=== PATIENT | female | born 1980 | race Hispanic/Latino ===

== ENCOUNTER 2018-12-30 15:35 | Inpatient (IN) | payer MEDICARE ==
[~2018-12-30] VITALS: Ht 162.6 cm; Wt 114.8 kg
[2018-12-30 16:09] LABS: BASOPHILS % (AUTO) 0.6 % (0.0-5.0); EOSINOPHILS % (AUTO) 4.7 % (0.0-8.0); HEMATOCRIT 41.4 % (36-48); LYMPHOCYTES % (AUTO) 16.7 % (21.0-51.0); MEAN CORPUSCULAR HEMOGLOBIN 30.6 pg (27.0-33.0); MEAN CORPUSCULAR HGB CONC 33.4 g/dL (32.0-36.0); MEAN CORPUSCULAR VOLUME 91.4 fL (79-99); MONOCYTES % (AUTO) 5.2 % (3.0-13.0); NEUTROPHILS % (AUTO) 72.8 % (40.0-77.0); PLATELET COUNT (AUTO) 269 K/uL (130-400); RED BLOOD CELL COUNT(AUTO) 4.53 MIL/uL (4.00-5.50); RED CELL DISTRIBUTION WIDTH 13.7 % (11.0-15.5)
[2018-12-30] MEDS ORDERED: FAMOTIDINE/PF 20 MG/2 ML VIAL IV ONE (16:12)
[2018-12-30] MEDS ORDERED: ONDANSETRON HCL 4 MG/2 ML VIAL ONE (16:12)
[2018-12-30] MEDS ORDERED: SODIUM CHLORIDE 0.9% 1000ML 1,000 ML IV ONE ×2 (16:12→19:02)
[2018-12-30 16:18] LABS: CREATININE 0.6 mg/dL (0.5-1.5); POTASSIUM 3.4 mmol/L (3.5-5.1)
[2018-12-30 16:22] LABS: BILIRUBIN,TOTAL 5.7 mg/dL (0.2-1.0); TOTAL PROTEIN, SERUM 7.4 g/dL (6.0-8.3)
[2018-12-30] MEDS ORDERED: DICYCLOMINE HCL 10 MG/ML 2ML AMP IM ONE (17:26)
[2018-12-30] MEDS: SODIUM CHLORIDE 0.9% 1000ML 1,000 ML IV SCH (17:27)
[2018-12-30] MEDS ORDERED: ACETAMINOPHEN 325 MG TAB PO PRN ×2 (17:30)
[2018-12-30] MEDS ORDERED: LACTULOSE 20 GM/30 ML UDCUP PO PRN (17:30)
[2018-12-30] MEDS ORDERED: HYDRALAZINE HCL 20 MG/ML VIAL IV PRN (17:30)
[2018-12-30 17:41] LABS: APPEARANCE,URINE CLOUDY (CLEAR); BILIRUBIN,URINE LARGE (NEGATIVE); COLOR,URINE ORANGE (YELLOW); GLUCOSE, URINE (UA) NEGATIVE (NEGATIVE); KETONES,URINE >=80 mg/dL (NEGATIVE); LEUKOCYTE ESTERASE ,URINE NEGATIVE (NEGATIVE); NITRATE,URINE POSITIVE (NEGATIVE); OCCULT BLOOD,URINE NEGATIVE (NEGATIVE); PROTEIN,URINE 100 mg/dL (NEGATIVE)
[2018-12-30 17:51] LABS: HCG,QUAL RESULT NEGATIVE (NEGATIVE)
[2018-12-30 18:02] LABS: RBC,URINE 0-1 /HPF (0-1)
[2018-12-30 18:03] LABS: BACTERIA,URINE Few /HPF (None Seen); MUCUS,URINE Few LPF (None Seen); SQUAMOUS EPITHELIAL CELL,UR Few /HPF (0-2)
[2018-12-30] MEDS ORDERED: ZOSYN 3.375GM+NS 50ML 50 ML IV ONE (19:01)
[2018-12-30] MEDS ORDERED: POTASSIUM CHLORIDE 10MEQ/100ML 100 ML IV PRN (20:15)
[2018-12-30] MEDS ORDERED: LIDOCAINE HCL-MPF 1% 2ML VIAL IVP PRN (20:15)
[2018-12-30] MEDS ORDERED: POTASSIUM CHLORIDE 20 MEQ ERTAB PO PRN (20:15)
[2018-12-30 20:28] VITALS: BP 145/93
[2018-12-30] MEDS: ZOSYN 3.375GM+NS 50ML 50 ML IV SCH (21:00)
[2018-12-30] MEDS: FAMOTIDINE/PF 20 MG/2 ML VIAL IV SCH (21:00)
[2018-12-30] MEDS ORDERED: ALBU8.5H8 IH (23:12)
[2018-12-30 23:52] VITALS: BP 160/94
[2018-12-31] MEDS: MEPERIDINE-PF 25 MG/ML SYG IV PRN ×2 (01:00→16:57)
[2018-12-31] MEDS: SODIUM CHLORIDE 0.9% 1000ML 1,000 ML IV SCH ×3 (03:27→22:14)
[2018-12-31 04:00] VITALS: BP 135/65
[2018-12-31] MEDS: ZOSYN 3.375GM+NS 50ML 50 ML IV SCH ×3 (06:18→22:14)
[2018-12-31 08:00] VITALS: BP 142/76
[2018-12-31 08:42] LABS: BASOPHILS % (AUTO) 0.5 % (0.0-5.0); HEMATOCRIT 35.7 % (36-48); LYMPHOCYTES % (AUTO) 20.6 % (21.0-51.0); MEAN CORPUSCULAR HEMOGLOBIN 31.1 pg (27.0-33.0); MEAN CORPUSCULAR HGB CONC 33.5 g/dL (32.0-36.0); MEAN CORPUSCULAR VOLUME 92.9 fL (79-99); MONOCYTES % (AUTO) 6.3 % (3.0-13.0); NEUTROPHILS % (AUTO) 68.6 % (40.0-77.0); PLATELET COUNT (AUTO) 214 K/uL (130-400); RED BLOOD CELL COUNT(AUTO) 3.85 MIL/uL (4.00-5.50); RED CELL DISTRIBUTION WIDTH 13.7 % (11.0-15.5); WHITE BLOOD COUNT (AUTO) 5.4 K/uL (4.8-10.8)
[2018-12-31 09:05] LABS: BILIRUBIN,TOTAL 4.3 mg/dL (0.2-1.0); CREATININE 0.5 mg/dL (0.5-1.5); POTASSIUM 3.6 mmol/L (3.5-5.1)
[2018-12-31 11:46] VITALS: BP 123/71
[2018-12-31] MEDS: FAMOTIDINE/PF 20 MG/2 ML VIAL IV SCH ×2 (15:48→22:14)
--- NOTE | 2018-12-31 16:37 | NUR ---
DCP CM met with pt discussed dc plans. Pt is independent prior to surgery, lives at home with mother. Denies any equipments/services. Pt feels safe to go back home, still drives, mother able to assist with transportation as necessary, arranges own meds. DC plan to home once stable. CM to cont to follow up. Addendum: 12/31/18 at 1639 by KRISTOPHER PARK LVN CM Amended: Links added.
[2018-12-31 16:56] VITALS: BP 123/68
[2018-12-31] MEDS: ONDANSETRON HCL 4 MG/2 ML VIAL IV PRN (16:57)
--- NOTE | 2018-12-31 18:00 | NUR ---
CALLED. AWARE OF MRCP RESULTS. PATIENT AND FAMILY AWARE. Addendum: 12/31/18 at 1825 by RIGO FLORES RN RN Amended: Links added.
[2018-12-31 20:00] VITALS: BP 116/66
[2019-01-01] VITALS (7 sets, daily range): BP systolic 114–128; BP diastolic 59–74
[2019-01-01 04:56] LABS: BASOPHILS % (AUTO) 0.5 % (0.0-5.0); HEMATOCRIT 39.3 % (36-48); LYMPHOCYTES % (AUTO) 16.4 % (21.0-51.0); MEAN CORPUSCULAR HEMOGLOBIN 31.8 pg (27.0-33.0); MEAN CORPUSCULAR HGB CONC 33.8 g/dL (32.0-36.0); MEAN CORPUSCULAR VOLUME 94.1 fL (79-99); MONOCYTES % (AUTO) 3.6 % (3.0-13.0); NEUTROPHILS % (AUTO) 77.5 % (40.0-77.0); PLATELET COUNT (AUTO) 239 K/uL (130-400); RED BLOOD CELL COUNT(AUTO) 4.18 MIL/uL (4.00-5.50); RED CELL DISTRIBUTION WIDTH 13.9 % (11.0-15.5); WHITE BLOOD COUNT (AUTO) 7.4 K/uL (4.8-10.8)
[2019-01-01 05:07] LABS: ALBUMIN 3.3 g/dL (3.5-5.0); BILIRUBIN,TOTAL 4.4 mg/dL (0.2-1.0); CREATININE 0.6 mg/dL (0.5-1.5); POTASSIUM 3.9 mmol/L (3.5-5.1); TOTAL PROTEIN, SERUM 6.9 g/dL (6.0-8.3)
[2019-01-01] MEDS: ZOSYN 3.375GM+NS 50ML 50 ML IV SCH ×3 (05:28→21:51)
[2019-01-01] MEDS: FAMOTIDINE/PF 20 MG/2 ML VIAL IV SCH ×2 (09:59→21:51)
[2019-01-01] MEDS: SODIUM CHLORIDE 0.9% 1000ML 1,000 ML IV SCH (10:51)
[2019-01-01] MEDS: ONDANSETRON HCL 4 MG/2 ML VIAL IV PRN ×3 (10:51→22:56)
[2019-01-01] MEDS: MEPERIDINE-PF 25 MG/ML SYG IV PRN ×3 (10:56→22:57)
--- NOTE | 2019-01-01 12:34 | NUR ---
Dr. Brewster in to see pt., states will wait & see how the live enzymes do after ERCP, may do lap jerry as an out patient.
--- NOTE | 2019-01-01 13:55 | NUR ---
Dr. Man called stated unable to do ERCP due to pt's history of gastric bypass surgery. Notified Dr. Brewster. stated to give pt. clear liquids, and he will see her tomorrow.
[2019-01-02 04:14] VITALS: BP 139/78
[2019-01-02 05:10] LABS: BASOPHILS % (AUTO) 0.7 % (0.0-5.0); HEMATOCRIT 37.8 % (36-48); LYMPHOCYTES % (AUTO) 18.3 % (21.0-51.0); MEAN CORPUSCULAR HEMOGLOBIN 31.4 pg (27.0-33.0); MEAN CORPUSCULAR HGB CONC 33.9 g/dL (32.0-36.0); MEAN CORPUSCULAR VOLUME 92.7 fL (79-99); MONOCYTES % (AUTO) 6.5 % (3.0-13.0); NEUTROPHILS % (AUTO) 70.5 % (40.0-77.0); PLATELET COUNT (AUTO) 227 K/uL (130-400); RED BLOOD CELL COUNT(AUTO) 4.07 MIL/uL (4.00-5.50); RED CELL DISTRIBUTION WIDTH 13.8 % (11.0-15.5); WHITE BLOOD COUNT (AUTO) 6.5 K/uL (4.8-10.8)
[2019-01-02] MEDS: ZOSYN 3.375GM+NS 50ML 50 ML IV SCH ×3 (05:13→21:06)
[2019-01-02] MEDS: SODIUM CHLORIDE 0.9% 1000ML 1,000 ML IV SCH ×5 (05:27→21:07)
[2019-01-02 05:44] LABS: ALBUMIN 2.8 g/dL (3.5-5.0); BILIRUBIN,TOTAL 3.5 mg/dL (0.2-1.0); CREATININE 0.6 mg/dL (0.5-1.5); POTASSIUM 3.7 mmol/L (3.5-5.1); TOTAL PROTEIN, SERUM 6.2 g/dL (6.0-8.3)
[2019-01-02 08:00] VITALS: BP 151/75
[2019-01-02] MEDS: FAMOTIDINE/PF 20 MG/2 ML VIAL IV SCH ×2 (09:51→21:06)
[2019-01-02 12:00] VITALS: BP 136/71
[2019-01-02] MEDS: ONDANSETRON HCL 4 MG/2 ML VIAL IV PRN ×2 (12:56→21:06)
[2019-01-02] MEDS: MEPERIDINE-PF 25 MG/ML SYG IV PRN ×2 (12:59→21:08)
[2019-01-02 16:00] VITALS: BP 128/80
[2019-01-02 20:27] VITALS: BP 113/69
[2019-01-03 00:18] VITALS: BP 107/52
[2019-01-03 04:42] VITALS: BP 122/68
[2019-01-03 05:16] LABS: BASOPHILS % (AUTO) 0.5 % (0.0-5.0); EOSINOPHILS % (AUTO) 4.3 % (0.0-8.0); HEMATOCRIT 35.2 % (36-48); LYMPHOCYTES % (AUTO) 25.2 % (21.0-51.0); MEAN CORPUSCULAR HEMOGLOBIN 31.3 pg (27.0-33.0); MEAN CORPUSCULAR HGB CONC 34.1 g/dL (32.0-36.0); MEAN CORPUSCULAR VOLUME 91.8 fL (79-99); MONOCYTES % (AUTO) 7.6 % (3.0-13.0); NEUTROPHILS % (AUTO) 62.4 % (40.0-77.0); PLATELET COUNT (AUTO) 234 K/uL (130-400); RED BLOOD CELL COUNT(AUTO) 3.83 MIL/uL (4.00-5.50); RED CELL DISTRIBUTION WIDTH 13.8 % (11.0-15.5); WHITE BLOOD COUNT (AUTO) 5.8 K/uL (4.8-10.8)
[2019-01-03] MEDS: ZOSYN 3.375GM+NS 50ML 50 ML IV SCH ×3 (05:25→22:05)
[2019-01-03 05:27] LABS: ALBUMIN 2.8 g/dL (3.5-5.0); BILIRUBIN,TOTAL 1.9 mg/dL (0.2-1.0); CREATININE 0.5 mg/dL (0.5-1.5); POTASSIUM 3.3 mmol/L (3.5-5.1); TOTAL PROTEIN, SERUM 5.8 g/dL (6.0-8.3)
[2019-01-03 08:00] VITALS: BP 126/72
[2019-01-03] MEDS: FAMOTIDINE/PF 20 MG/2 ML VIAL IV SCH ×2 (10:00→22:05)
[2019-01-03] MEDS: ONDANSETRON HCL 4 MG/2 ML VIAL IV PRN ×2 (10:00→17:53)
[2019-01-03] MEDS: POTASSIUM CHLORIDE 10% ELIXIR 20 MEQ/15 ML UDCUP PO PRN ×3 (10:01→15:23)
[2019-01-03] MEDS: MEPERIDINE-PF 25 MG/ML SYG IV PRN ×2 (10:02→17:54)
[2019-01-03 12:06] VITALS: BP 106/61
[2019-01-03] MEDS: SODIUM CHLORIDE 0.9% 1000ML 1,000 ML IV SCH (15:28)
[2019-01-03 16:00] VITALS: BP 125/62
[2019-01-03 20:00] VITALS: BP 119/71
[2019-01-04] VITALS: BP 118/79
[2019-01-04] MEDS: ONDANSETRON HCL 4 MG/2 ML VIAL IV PRN (01:04)
[2019-01-04] MEDS: MEPERIDINE-PF 25 MG/ML SYG IV PRN (01:05)
[2019-01-04 04:00] VITALS: BP 120/73
[2019-01-04 04:50] LABS: BASOPHILS % (AUTO) 0.6 % (0.0-5.0); HEMATOCRIT 35.1 % (36-48); LYMPHOCYTES % (AUTO) 28.5 % (21.0-51.0); MEAN CORPUSCULAR HEMOGLOBIN 31.8 pg (27.0-33.0); MEAN CORPUSCULAR HGB CONC 34.5 g/dL (32.0-36.0); MEAN CORPUSCULAR VOLUME 92.2 fL (79-99); MONOCYTES % (AUTO) 8.7 % (3.0-13.0); NEUTROPHILS % (AUTO) 57.2 % (40.0-77.0); PLATELET COUNT (AUTO) 227 K/uL (130-400); RED BLOOD CELL COUNT(AUTO) 3.81 MIL/uL (4.00-5.50); RED CELL DISTRIBUTION WIDTH 13.8 % (11.0-15.5); WHITE BLOOD COUNT (AUTO) 5.4 K/uL (4.8-10.8)
[2019-01-04 05:05] LABS: ALBUMIN 2.7 g/dL (3.5-5.0); BILIRUBIN,TOTAL 2.2 mg/dL (0.2-1.0); CREATININE 0.5 mg/dL (0.5-1.5); TOTAL PROTEIN, SERUM 5.6 g/dL (6.0-8.3)
[2019-01-04 05:08] LABS: POTASSIUM 2.9 mmol/L (3.5-5.1)
[2019-01-04] MEDS: ZOSYN 3.375GM+NS 50ML 50 ML IV SCH ×2 (05:28→12:35)
[2019-01-04] MEDS: POTASSIUM CHLORIDE 10% ELIXIR 20 MEQ/15 ML UDCUP PO PRN (05:30)
[2019-01-04 07:45] VITALS: BP 118/74
[2019-01-04] MEDS: FAMOTIDINE/PF 20 MG/2 ML VIAL IV SCH (08:30)
[2019-01-04] MEDS: SODIUM CHLORIDE 0.9% 1000ML 1,000 ML IV SCH (08:31)
[2019-01-04 11:04] VITALS: BP 125/76
[2019-01-04] MEDS ORDERED: MORPHINE SULFATE 2 MG/ML 1ML SYG IVP PRN (11:15)
[2019-01-04 16:36] VITALS: BP 119/76
--- NOTE | 2019-01-04 18:12 | NUR ---
1426 Transfer request to [facility] under the service of Dr Barajas. 1545 chart review and transfer center contacted spoke with [facility] transfer worker information fax and now pending call back . [phone] follow on bed assignment as per [facility] awaiting for a bed to become available pending call back. primary nurse made aware of above. Octavio rea
--- NOTE | 2019-01-04 19:17 | NUR ---
1832 [facility] call back with assignment room 1521 and primary nurse to call report to [phone] under the service of Jewel Barajas and consents sign and EMS set up and now awaiting for EMS. Octavio rea
== END 2019-01-04 19:45 | disposition short-term general hospital (02) | DRG 445 ==
LOC: EDH 15:35 → EDHIP 17:27 → 4CH 20:19
PROVIDERS: ADMIT Internal Medicine; ATTEND Internal Medicine
DX: K80.20 Calculus of gallbladder without cholecystitis without obstruction (principal); Z68.41 Body mass index [BMI] 40.0-44.9, adult; E44.0 Moderate protein-calorie malnutrition; R74.0 Nonspecific elevation of levels of transaminase and lactic acid dehydrogenase [LDH]; E66.01 Morbid (severe) obesity due to excess calories; J45.909 Unspecified asthma, uncomplicated; Z98.84 Bariatric surgery status
CPT/HCPCS: 36415; 74181; 76705; 80053; 81001; 81025; 83690; 85025; G0378; J0500; J2175; J2405; J2543; J3490; J7030